=== PATIENT | female | born 1970 | race American Indian/Alaskan Native ===

== ENCOUNTER 2017-04-18 02:37 | Emergency (ER) | payer BC, OTHER ==
[2017-04-18] MEDS ORDERED: Albuterol/Ipratropium 3.0-0.5 MG/3 ML Neb Soln NEB ONE (02:38)
[2017-04-18] MEDS ORDERED: methylPREDNISolone Sodium Succinate 125 MG/2 ML SDV IM ONE (02:39)
--- NOTE | 2017-04-18 02:40 | EDM.PDOC ---
ED HPI GENERAL MEDICAL PROBLEM - General Stated Complaint: SHORTNESS OF BREATH Time Seen by Provider: 04/18/17 02:39 Source of Information: Reports: Patient - History of Present Illness INITIAL COMMENTS - FREE TEXT/NARRATIVE: HISTORY AND PHYSICAL: History of present illness: [Patient was 26 year smoking history presents with diagnosis of bronchitis within the last 24 hours provided amoxicillin and Pro Air HFA inhaler at the walk-in clinic], presents with essentially not immediately feeling better. Fever nausea vomiting diarrhea constipation chest pain shortness of breath headache dizziness or palpitation no bowel or urine symptoms She is taken 2 doses of amoxicillin and has used the inhaler smokes 7 cigarettes daily although was taking Chantix in an effort to stop Review of systems: As per history of present illness and below otherwise all systems reviewed and negative. Past medical history: As per history of present illness and as reviewed below otherwise noncontributory. Surgical history: As per history of present illness and as reviewed below otherwise noncontributory. Social history: No reported history of drug or alcohol abuse. Family history: As per history of present illness and as reviewed below otherwise noncontributory. Physical exam: HEENT: Atraumatic, normocephalic, pupils reactive, negative for conjunctival pallor or scleral icterus, mucous membranes moist, throat clear, neck supple, nontender, trachea midline. Lungs: Clear to auscultation, breath sounds equal bilaterally, chest nontender. Heart: S1S2, regular, negative for clicks, rubs, or JVD. Abdomen: Soft, nondistended, nontender. Negative for masses or hepatosplenomegaly. Negative for costovertebral tenderness. Pelvis: Stable nontender. Genitourinary: Deferred. Rectal: Deferred. Extremities: Atraumatic, negative for cords or calf pain. Neurovascular unremarkable. Neuro: Awake, alert, oriented. Cranial nerves II through XII unremarkable. Cerebellum unremarkable. Motor and sensory unremarkable throughout. Exam nonfocal. Diagnostics: [chest 2 views ]flu Therapeutics: [duneb medrol 125 mg IM ] Continue amoxicillin Continue HFA 4 times a day when necessary Medrol Dosepak Impression: acute bronchitis ] Nicotine dependence Definitive disposition and diagnosis as appropriate pending reevaluation and review of above. mid-chest Pain Score (Numeric/FACES): 5 - Related Data Allergies Allergy/AdvReac Type Severity Reaction Status Date / Time No Known Allergies Allergy Verified 04/18/17 02:50 Home Meds: Home Meds Chlorthalidone 25 mg PO DAILY 12/20/14 [History] amLODIPine Besylate [Amlodipine Besylate] 10 mg PO DAILY 12/20/14 [History] Aspirin [[place] Aspirin] 81 mg PO DAILY 08/06/15 [History] Estradiol 1 mg PO DAILY 04/18/17 [History] Varenicline Tartrate [Chantix] 1 mg PO BID 04/18/17 [History] Past Medical History HEENT History: Reports: Impaired Vision Other HEENT History: wears contacts Cardiovascular History: Reports: Hypertension Respiratory History: Reports: None Gastrointestinal History: Reports: None Genitourinary History: Reports: None Other Genitourinary History: stress urinary incontinence [employer] History: Reports: Other OB/BYN History: pelvic pain, abnormal pap smear, fibroid Musculoskeletal History: Reports: None Neurological History: Reports: None Psychiatric History: Reports: None Endocrine/Metabolic History: Reports: None Hematologic History: Reports: None Immunologic History: Reports: None Oncologic (Cancer) History: Reports: None Dermatologic History: Reports: None - Past Surgical History Head Surgeries/Procedures: Reports: None Social & Family History - Tobacco Use Smoking Status *Q: Current Every Day Smoker Packs/Tins Daily: 1 Used Tobacco, but Quit: Yes - Alcohol Use Days Per Week of Alcohol Use: 7 Number of Drinks Per Day: 2 Total Drinks Per Week: 14 - Recreational Drug Use Recreational Drug Use: No Drug Use in Last 12 Months: No ED ROS GENERAL - Review of Systems Review Of Systems: ROS reveals no pertinent complaints other than HPI. ED EXAM, GENERAL - Physical Exam Exam: See Below Course - Vital Signs Last Recorded V/S: Last Vital Signs Temp 99 F 04/18/17 02:46 Pulse 98 04/18/17 03:28 Resp 18 04/18/17 03:28 BP 137/89 04/18/17 03:28 Pulse Ox 96 04/18/17 03:28 - Orders/Labs/Meds Orders: Active Orders 24 hr Category Date Time Status RT Aerosol Therapy [RC] ASDIRECTED Care 04/18/17 02:39 Active Chest 2V [CR] Stat Exams 04/18/17 02:38 Taken Meds: Medications Discontinued Medications Generic Name Dose Route Start Last Admin Trade Name Freq PRN Reason Stop Dose Admin Albuterol/Ipratropium 3 ml 04/18/17 02:38 04/18/17 03:02 Duoneb 3.0-0.5 Mg/3 Ml NEB 04/18/17 02:39 3 ml ONETIME ONE Administration Methylprednisolone Sodium Succinate 125 mg 04/18/17 02:39 04/18/17 03:00 Solu-Medrol IM 04/18/17 02:40 125 mg ONETIME ONE Administration Departure - Departure Time of Disposition: 03:42 Disposition: Home, Self-Care 01 Condition: Good Clinical Impression: Acute bronchitis - Discharge Information Referrals: Hernan Combs MD [Primary Care Provider] - Additional Instructions: The following information is given to patients seen in the emergency department who are being discharged to home. This information is to outline your options for follow-up care. We provide all patients seen in our emergency department with a follow-up referral. The need for follow-up, as well as the timing and circumstances, are variable depending upon the specifics of your emergency department visit. If you don't have a primary care physician on staff, we will provide you with a referral. We always advise you to contact your personal physician following an emergency department visit to inform them of the circumstance of the visit and for follow-up with them and/or the need for any referrals to a consulting specialist. The emergency department will also refer you to a specialist when appropriate. This referral assures that you have the opportunity for follow-up care with a specialist. All of these measure are taken in an effort to provide you with optimal care, which includes your follow-up. Under all circumstances we always encourage you to contact your private physician who remains a resource for coordinating your care. When calling for follow-up care, please make the office aware that this follow-up is from your recent emergency room visit. If for any reason you are refused follow-up, please contact the [facility] emergency department at and asked to speak to the emergency department charge nurse. - My Orders Last 24 Hours: My Active Orders 04/18/17 02:38 Chest 2V [CR] Stat 04/18/17 02:39 RT Aerosol Therapy [RC] ASDIRECTED - Assessment/Plan Last 24 Hours: My Active Orders 04/18/17 02:38 Chest 2V [CR] Stat 04/18/17 02:39 RT Aerosol Therapy [RC] ASDIRECTED
[2017-04-18 03:56] VITALS: BP 133/85
--- NOTE | 2017-04-20 09:43 | CR ---
EXAM DATE: 04/18/17 PATIENT'S AGE: 46 Patient: TIFFANY MCKENZIE Facility: [place], [place] Site . Site : [id number] Study: XRay Chest [id number]/[id number] 3:23:44 AM Ordering Physician: Doctor Espinosa Final Report: INDICATIONS: Shortness of breath since Thursday. TECHNIQUE: Chest 2 view. COMPARISON: None FINDINGS: No pneumothorax or pleural effusion. There are mild opacities in the lingula and right middle lobe. The lungs are otherwise clear. Cardiac and mediastinal contours are within normal limits. Upper abdomen and osseous structures show no acute abnormality. IMPRESSION: Mild right middle lobe and lingular opacities may represent atelectasis or early airspace disease in the appropriate clinical setting. Dictated by Manny Kemp MD @ 04/18/2017 3:31:09 AM Dictated by: Manny Kemp MD @ 04/18/2017 03:31:18 (Electronic Signature) Report Signed by Proxy. VINCE
== END 2017-04-18 03:50 | disposition home or self-care (01) ==
LOC: MW.ED 02:37
DX: J20.9 Acute bronchitis, unspecified (principal); I10 Essential (primary) hypertension; F17.210 Nicotine dependence, cigarettes, uncomplicated; Z79.82 Long term (current) use of aspirin; Z79.899 Other long term (current) drug therapy
CPT/HCPCS: 71046; 87804; 94640; 96372; 99285; J2930; 99284

== ENCOUNTER 2017-07-29 20:50 | Emergency (ER) | payer BC ==
[2017-07-29 21:00] VITALS: BP 152/101
--- NOTE | 2017-07-29 21:08 | EDM.PDOC ---
ED HPI GENERAL MEDICAL PROBLEM - General Chief Complaint: Upper Extremity Injury/Pain Stated Complaint: TINGLY LT HAND/BRUISED Time Seen by Provider: 07/29/17 20:58 Source of Information: Reports: Patient History Limitations: Reports: No Limitations - History of Present Illness INITIAL COMMENTS - FREE TEXT/NARRATIVE: HISTORY AND PHYSICAL: History of present illness: Patient is a 46-year-old female who presents to the emergency room today with complaints of discoloration and tingling to her left hand. States that a friend had noted out that her left hand appeared discolored, and had some tingling to the affected extremity. She denies any pain or recent injury. No history of DVT or blood clots. 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 Past medical history: As per history of present illness and as reviewed below otherwise noncontributory. Surgical history: As per history of present illness and as reviewed below otherwise noncontributory. Social history: No reported history of drug or alcohol abuse. Family history: As per history of present illness and as reviewed below otherwise noncontributory. Physical exam: General: Well-developed and well-nourished 46-year-old female. Alert and oriented. Nontoxic appearing and in no acute distress. HEENT: Atraumatic, normocephalic, pupils equal and reactive bilaterally, negative for conjunctival pallor or scleral icterus, mucous membranes moist, throat clear, neck supple, nontender, trachea midline. No drooling or trismus noted. No meningeal signs Lungs: Clear to auscultation, breath sounds equal bilaterally, chest nontender. Heart: S1S2, regular rate and rhythm without overt murmur Abdomen: Soft, nondistended, nontender. Negative for masses or hepatosplenomegaly. Negative for costovertebral tenderness. Pelvis: Stable nontender. Genitourinary: Deferred. Rectal: Deferred. Skin: Intact, warm, dry. No lesions or rashes noted. Both upper extremities are of equal temperature. No swelling noted. Extremities: Atraumatic, negative for cords or calf pain. Neurovascular unremarkable. Neuro: Awake, alert, oriented. Cranial nerves II through XII unremarkable. Cerebellum unremarkable. Motor and sensory unremarkable throughout. Exam nonfocal. Notes: Blue discoloration noted to the left carter surface (more-so than the back of her hand). I did ask the patient if she had new pants on as they are a dark Pito. She states they are new. The dye from her hand was easily removed with an alcohol wipe from her carter surface. Strong radial pulse, cap refill less than 3 seconds. After the coloration was removed, we did discussed diagnositics - she declined. We discussed signs and symptoms that would prompt him to come back to the emergency room. They voice understanding and are agreeable to plan of care. No further questions at this time. Diagnostics: None Therapeutics: Reassurance Impression: Evaluation for medical screening Parasthesia Plan: Please follow up with your primary medical doctor in the next 1-2 days. Return to the ED as needed and as discussed. Definitive disposition and diagnosis as appropriate pending reevaluation and review of above. Onset: Today Duration: Hour(s): Location: Reports: Upper Extremity, Left - Related Data Allergies Allergy/AdvReac Type Severity Reaction Status Date / Time No Known Allergies Allergy Verified 04/18/17 02:50 Home Meds: Home Meds Chlorthalidone 25 mg PO DAILY 12/20/14 [History] amLODIPine Besylate [Amlodipine Besylate] 10 mg PO DAILY 12/20/14 [History] Aspirin [[place] Aspirin] 81 mg PO DAILY 08/06/15 [History] Estradiol 1 mg PO DAILY 04/18/17 [History] Varenicline Tartrate [Chantix] 1 mg PO BID 04/18/17 [History] Past Medical History HEENT History: Reports: Impaired Vision Other HEENT History: wears contacts Cardiovascular History: Reports: Hypertension Respiratory History: Reports: None Gastrointestinal History: Reports: None Genitourinary History: Reports: None Other Genitourinary History: stress urinary 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 OB/BYN History: pelvic pain, abnormal pap smear, fibroid Musculoskeletal History: Reports: None Neurological History: Reports: None Psychiatric History: Reports: None Endocrine/Metabolic History: Reports: None Hematologic History: Reports: None Immunologic History: Reports: None Oncologic (Cancer) History: Reports: None Dermatologic History: Reports: None - Past Surgical History Head Surgeries/Procedures: Reports: None Social & Family History - Family History Family Medical History: Noncontributory - Tobacco Use Smoking Status *Q: Current Every Day Smoker Years of Tobacco use: 30 Packs/Tins Daily: 1 Used Tobacco, but Quit: Yes - Caffeine Use Caffeine Use: Reports: Coffee - Alcohol Use Days Per Week of Alcohol Use: 7 Number of Drinks Per Day: 2 Total Drinks Per Week: 14 - Recreational Drug Use Recreational Drug Use: No Drug Use in Last 12 Months: No Review of Systems - Review of Systems Review Of Systems: ROS reveals no pertinent complaints other than HPI. ED EXAM, GENERAL - Physical Exam Exam: See Below (See dictation) Departure - Departure Time of Disposition: 21:08 Disposition: Home, Self-Care 01 Clinical Impression: Encounter for medical screening examination, Left hand paresthesia - Discharge Information Instructions: Paresthesia, [id number] Referrals: Hernan Combs MD [Primary Care Provider] - Additional Instructions: The following information is given to patients seen in the emergency department who are being discharged to home. This information is to outline your options for follow-up care. We provide all patients seen in our emergency department with a follow-up referral. The need for follow-up, as well as the timing and circumstances, are variable depending upon the specifics of your emergency department visit. If you don't have a primary care physician on staff, we will provide you with a referral. We always advise you to contact your personal physician following an emergency department visit to inform them of the circumstance of the visit and for follow-up with them and/or the need for any referrals to a consulting specialist. The emergency department will also refer you to a specialist when appropriate. This referral assures that you have the opportunity for follow-up care with a specialist. All of these measure are taken in an effort to provide you with optimal care, which includes your follow-up. Under all circumstances we always encourage you to contact your private physician who remains a resource for coordinating your care. When calling for follow-up care, please make the office aware that this follow-up is from your recent emergency room visit. If for any reason you are refused follow-up, please contact the [facility] Emergency Department at and asked to speak to the emergency department charge nurse. [facility] [address] [place] [id number] Please follow up with your primary medical doctor in the next 1-2 days. Return to the ED as needed and as discussed.
== END 2017-07-29 21:13 | disposition home or self-care (01) ==
LOC: MW.ED 20:50
DX: R20.2 Paresthesia of skin (principal); I10 Essential (primary) hypertension; Z79.899 Other long term (current) drug therapy; Z79.82 Long term (current) use of aspirin; Z87.891 Personal history of nicotine dependence
CPT/HCPCS: 99282; 99283

== ENCOUNTER 2023-10-01 10:32 | Day surgery (SDC) | payer BC, OTHER ==
[2023-10-01] MEDS: Lactated Ringers 1,000 ML IV SCH (11:05)
[2023-10-01] MEDS ORDERED: propofoL 50 ML ONE (12:19)
[2023-10-01] MEDS ORDERED: fentaNYL 100 MCG/2 ML SDV ONE (12:25)
[2023-10-01 13:40] VITALS: BP 125/81; PULSE 79
== END 2023-10-01 13:28 | disposition home or self-care (01) ==
LOC: MW.SDS 10:32
PROVIDERS: ATTEND Surgery
DX: Z12.11 Encounter for screening for malignant neoplasm of colon (principal); D12.5 Benign neoplasm of sigmoid colon; I10 Essential (primary) hypertension; E78.00 Pure hypercholesterolemia, unspecified; F17.290 Nicotine dependence, other tobacco product, uncomplicated; Z79.899 Other long term (current) drug therapy; Z91.018 Allergy to other foods
CPT/HCPCS: 45385; J2704; J3010; J7120; 00812